=== PATIENT | male | born 1950 | race Caucasian/White ===

== ENCOUNTER 2018-08-02 07:48 | Inpatient (IN) | payer OTHER, MEDICARE ==
[2018-08-02] MEDS ORDERED: SODIUM CHLORIDE 0.9% 1,000 ML IV STA (08:00)
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
[2018-08-02 10:04] LABS: INR 2.8 (<1.2); Partial Thromboplastin Time 28.5 sec (22.0-30.0); Prothrombin Time 24.9 sec (9.0-12.0)
[2018-08-02 10:13] LABS: Basophils % (A) 1 %; Eosinophils # (A) 0.3 k/uL (0-0.7); Eosinophils % (A) 6 %; Hypochromasia Slight; Lymphocytes % (A) 21 %; MCH 29.5 pg (25.0-35.0); MCHC 33.1 g/dL (31.0-37.0); MCV 89.1 fL (80.0-100.0); Mean Platelet Volume 9.3; Monocytes # (A) 0.4 k/uL (0-1.0); Monocytes % (A) 9 %; Neutrophils # (A) 3.1 k/uL (1.3-7.7); Neutrophils % (A) 62 %; Platelet Count 201 k/uL (150-450); RBC 2.19 m/uL (4.30-5.90); RDW 13.8 % (11.5-15.5); WBC 4.9 k/uL (3.8-10.6)
[2018-08-02 10:17] LABS: HCT 19.5 % (39.0-53.0); HGB 6.5 gm/dL (13.0-17.5)
[2018-08-02 10:29] LABS: Albumin 3.3 g/dL (3.5-5.0); Calcium 8.4 mg/dL (8.4-10.2); Potassium 4.4 mmol/L (3.5-5.1); Total Bilirubin 0.1 mg/dL (0.2-1.3); Total Protein 6.4 g/dL (6.3-8.2)
[2018-08-02] MEDS ORDERED: PHYTONADIONE 5 MG in SODIUM CHLORIDE 0.9% 50 ML IVPB STA (10:40)
[2018-08-02 10:52] LABS: Appearance,Urine Clear (Clear); Bilirubin,Urine Negative (Negative); Blood,Urine Negative (Negative); Color,Urine Light Yellow; Glucose,Urine (UA) 2+ (Negative); Ketones,Urine Negative (Negative); Leukocyte Esterase,Urine Negative (Negative); Mucus,Urine Rare /hpf; Nitrite,Urine Negative (Negative); PH, Urine 5.5 (5.0-8.0); Protein,Urine 1+ (Negative); RBC,Urine <1 /hpf (0-5); Specific Gravity,Urine 1.025 (1.001-1.035); Urobilinogen,Urine <2.0 mg/dL (<2.0)
[2018-08-02 11:00] LABS: Creatine Kinase 84 U/L (55-170)
[2018-08-02] MEDS ORDERED: SODIUM CHLORIDE 0.9% 1,000 ML IV ONE (11:03)
[2018-08-02] MEDS ORDERED: NALOXONE 0.4 MG/ML 1 ML VIAL IV PRN (11:03)
[2018-08-02] MEDS ORDERED: LORazepam 2 MG/ML INJ IV PRN (11:03)
[2018-08-02] MEDS ORDERED: MORPHINE SULFATE 4 MG/ML SYRINGE IV PRN (11:03)
[2018-08-02] MEDS ORDERED: ONDANSETRON 4 MG/2 ML VIAL IVP PRN (11:03)
[2018-08-02 11:13] LABS: Creatine Kinase MB 0.8 ng/mL (0.0-2.4); Troponin I <0.012 ng/mL (0.000-0.034)
[2018-08-02 16:40] LABS: HCT 21.3 % (39.0-53.0); HGB 7.2 gm/dL (13.0-17.5); Hypochromasia Slight; MCH 30.2 pg (25.0-35.0); MCHC 33.6 g/dL (31.0-37.0); Mean Platelet Volume 8.5; Platelet Count 193 k/uL (150-450); Poikilocytosis Slight; RBC 2.37 m/uL (4.30-5.90); WBC 5.5 k/uL (3.8-10.6)
[2018-08-02] MEDS ORDERED: HYDROcodone/APAP 5-325MG 1 EACH TAB PO PRN (18:40)
[2018-08-02] MEDS: CARVEDILOL 12.5 MG TAB PO SCH (19:03)
[2018-08-02] MEDS: glipiZIDE 10 MG TAB PO SCH (19:03)
[2018-08-02] MEDS: INSULIN ASPART 100 UNIT/ML 1 ML 10 ML VIAL SQ SCH ×2 (19:03→20:24)
[2018-08-02] MEDS: PANTOPRAZOLE 40 MG/10 ML VIAL IVP SCH (19:10)
[2018-08-02] MEDS: ATORVASTATIN 40 MG TAB PO SCH (20:32)
[2018-08-02] MEDS: LISINOPRIL 10 MG TAB PO SCH (20:32)
[2018-08-02 20:34] LABS: Glucose,Whole Blood 81 mg/dL (75-99)
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
[2018-08-02] MEDS ORDERED: TEMAZEPAM 15 MG CAP PO PRN (21:00)
[2018-08-02 23:37] LABS: Glucose,Whole Blood 81 mg/dL (75-99)
[2018-08-03 03:57] LABS: Hemoglobin A1C 5.7 % (4.0-6.0)
[2018-08-03] MEDS: glipiZIDE 10 MG TAB PO SCH ×2 (06:34→17:49)
[2018-08-03] MEDS: INSULIN ASPART 100 UNIT/ML 1 ML 10 ML VIAL SQ SCH ×4 (06:34→20:53)
[2018-08-03] MEDS: CARVEDILOL 12.5 MG TAB PO SCH ×2 (06:35→17:49)
[2018-08-03 07:00] LABS: Glucose,Whole Blood 95 mg/dL (75-99)
[2018-08-03 07:02] LABS: INR 1.4 (<1.2); Prothrombin Time 12.9 sec (9.0-12.0)
[2018-08-03 07:04] LABS: Albumin 2.9 g/dL (3.5-5.0); Calcium 8.4 mg/dL (8.4-10.2); Potassium 3.9 mmol/L (3.5-5.1); Total Bilirubin 0.5 mg/dL (0.2-1.3); Total Protein 5.7 g/dL (6.3-8.2)
[2018-08-03 07:25] LABS: Basophils % (A) 1 %; Eosinophils # (A) 0.3 k/uL (0-0.7); Eosinophils % (A) 6 %; HCT 20.1 % (39.0-53.0); Hypochromasia Slight; Lymphocytes # (A) 1.3 k/uL (1.0-4.8); Lymphocytes % (A) 29 %; MCH 29.3 pg (25.0-35.0); MCHC 33.2 g/dL (31.0-37.0); MCV 88.3 fL (80.0-100.0); Mean Platelet Volume 9.4; Monocytes # (A) 0.4 k/uL (0-1.0); Monocytes % (A) 8 %; Neutrophils # (A) 2.4 k/uL (1.3-7.7); Neutrophils % (A) 54 %; Platelet Count 207 k/uL (150-450); Poikilocytosis Slight; RBC 2.27 m/uL (4.30-5.90); RDW 14.4 % (11.5-15.5); WBC 4.5 k/uL (3.8-10.6)
[2018-08-03 07:34] LABS: HGB 6.7 gm/dL (13.0-17.5)
[2018-08-03] MEDS: NICOTINE 14MG/24HR PATCH TRANSDERM SCH (08:35)
[2018-08-03] MEDS: SERTRALINE 50 MG TAB PO SCH (08:36)
[2018-08-03] MEDS: LISINOPRIL 10 MG TAB PO SCH ×2 (08:36→20:52)
[2018-08-03] MEDS: PANTOPRAZOLE 40 MG/10 ML VIAL IVP SCH (08:37)
[2018-08-03] MEDS ORDERED: FERROUS SULFATE 325 MG TAB PO SCH (09:00)
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
[2018-08-03] MEDS ORDERED: BISACODYL 5 MG TABLET.DR PO STA (10:57)
[2018-08-03 11:45] LABS: Glucose,Whole Blood 106 mg/dL (75-99)
--- NOTE | 2018-08-03 12:14 | ECHOF ---
Referral Reason:r/o cardiac contusion MEASUREMENTS -------- HEIGHT: 180.3 cm WEIGHT: 98.0 kg BP: IVSd: 1.3 cm (0.6 - 1.1) LVIDd: 4.9 cm (3.9 - 5.3) LVPWd: 1.3 cm (0.6 - 1.1) IVSs: 1.5 cm LVIDs: 2.8 cm LVPWs: 2.0 cm Ao Diam: 3.5 cm (2.0 - 3.7) AV Cusp: 2.0 cm (1.5 - 2.6) LA Diam: 3.8 cm (2.7 - 3.8) EPSS: 1.1 cm MV E [place]: 1.18 m/s MV A [place]: 0.84 m/s MV E/A Ratio: 1.40 MV EF SLOPE: 41.20 mm/s (70 - 150) MV EXCURSION: 1.50 cm (> 18.000) FINDINGS -------- Sinus rhythm. Pacerwire seen in RV and RA. AICD This was a technically difficult study with suboptimal views. The left ventricular size is normal. There is mild concentric left ventricular hypertrophy. Overa ll left ventricular systolic function is mild-moderately impaired with, an EF between 40 - 45 %. Ba leticia inferoseptal LV wall motion is hypokinetic. Mid inferoseptal LV wall motion is hypokinetic. Inferiorlateral Hypokinesis The right ventricle is normal in size and function. The left atrium is normal in size. The right atrium is normal in size. XX ml of Lumason was utilized for enhancement of images. The aortic valve is trileaflet, and appears structurally normal. No aortic stenosis or regurgitation. Mild mitral regurgitation is present. Mild tricuspid regurgitation present. The right ventricular systolic pressure, as measured by Doppl er, is {RVSP}. Pulmonic valve appears structurally normal. The aortic root size is normal. The pericardium is normal. CONCLUSIONS -------- 1. Sinus rhythm. 2. Pacerwire seen in RV and RA. 3. AICD 4. This was a technically difficult study with suboptimal views. 5. The left ventricular size is normal. 6. There is mild concentric left ventricular hypertrophy. 7. Overall left ventricular systolic function is mild-moderately impaired with, an EF between 40 - 45 %. 8. Basal inferoseptal LV wall motion is hypokinetic. 9. Mid inferoseptal LV wall motion is hypokinetic. 10. Inferiorlateral Hypokinesis 11. The right ventricle is normal in size and function. 12. The left atrium is normal in size. 13. The right atrium is normal in size. 14. XX ml of Lumason was utilized for enhancement of images. 15. The aortic valve is trileaflet, and appears structurally normal. No aortic stenosis or regurgitat ion. 16. Mild mitral regurgitation is present. 17. Mild tricuspid regurgitation present. 18. The right ventricular systolic pressure, as measured by Doppler, is {RVSP}. 19. Pulmonic valve appears structurally normal. 20. The aortic root size is normal. 21. The pericardium is normal. [employer] ENGINEER: Ashlee Luna RDCS
[2018-08-03] MEDS: LINAGLIPTIN 5 MG TABLET PO SCH (13:06)
[2018-08-03] MEDS: MULTIVITAMINS, THERA 1 EACH TAB PO SCH (13:07)
[2018-08-03] MEDS ORDERED: PEG 3350-NA SULF,BICARB,CL/KCL 4,000 ML BOTTLE PO ONE (14:00)
[2018-08-03 16:55] LABS: Glucose,Whole Blood 147 mg/dL (75-99)
[2018-08-03 19:11] LABS: HCT 26.5 % (39.0-53.0); Hypochromasia Slight; MCHC 33.1 g/dL (31.0-37.0); MCV 90.6 fL (80.0-100.0); Mean Platelet Volume 8.2; Platelet Count 228 k/uL (150-450); Poikilocytosis Slight; RBC 2.93 m/uL (4.30-5.90); RDW 14.1 % (11.5-15.5); WBC 6.6 k/uL (3.8-10.6)
[2018-08-03 19:19] LABS: HGB 8.8 gm/dL (13.0-17.5)
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
[2018-08-03] MEDS: ATORVASTATIN 40 MG TAB PO SCH (20:52)
[2018-08-03 21:05] LABS: Glucose,Whole Blood 147 mg/dL (75-99)
[2018-08-03 21:19] LABS: Glucose,Whole Blood 129 mg/dL (75-99)
[2018-08-04 06:49] LABS: Glucose,Whole Blood 80 mg/dL (75-99)
[2018-08-04] MEDS: INSULIN ASPART 100 UNIT/ML 1 ML 10 ML VIAL SQ SCH ×4 (07:00→20:20)
[2018-08-04] MEDS: LACTATED RINGERS 1,000 ML IV SCH ×2 (07:00→15:45)
[2018-08-04 07:18] LABS: INR 1.2 (<1.2); Prothrombin Time 11.2 sec (9.0-12.0)
[2018-08-04 07:27] LABS: Basophils % (A) 1 %; Eosinophils # (A) 0.4 k/uL (0-0.7); Eosinophils % (A) 6 %; HCT 22.2 % (39.0-53.0); HGB 7.5 gm/dL (13.0-17.5); Hypochromasia Slight; Lymphocytes # (A) 1.1 k/uL (1.0-4.8); Lymphocytes % (A) 20 %; MCHC 33.7 g/dL (31.0-37.0); Mean Platelet Volume 8.9; Monocytes # (A) 0.5 k/uL (0-1.0); Monocytes % (A) 8 %; Neutrophils # (A) 3.7 k/uL (1.3-7.7); Neutrophils % (A) 64 %; Platelet Count 199 k/uL (150-450); Poikilocytosis Slight; WBC 5.8 k/uL (3.8-10.6)
[2018-08-04 07:28] LABS: Calcium 8.5 mg/dL (8.4-10.2)
[2018-08-04] MEDS ORDERED: IV FLUID CONTINUATION 1,000 ML IV ONE (08:04)
[2018-08-04] MEDS ORDERED: fentaNYL (PF) 50 MCG/ML 2 ML AMP ONE (08:04)
[2018-08-04] MEDS ORDERED: LIDOCAINE 1% INJ 10MG/ML (20 ML MDV) ONE (08:04)
[2018-08-04] MEDS ORDERED: PROPOFOL 10 MG/ML 20 ML VIAL IV ONE (08:04)
[2018-08-04] MEDS: MULTIVITAMINS, THERA 1 EACH TAB PO SCH (08:57)
[2018-08-04] MEDS: SERTRALINE 50 MG TAB PO SCH (08:57)
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
[2018-08-04] MEDS: NICOTINE 14MG/24HR PATCH TRANSDERM SCH (09:00)
[2018-08-04] MEDS: PANTOPRAZOLE 40 MG/10 ML VIAL IVP SCH (09:02)
[2018-08-04] MEDS ORDERED: SIMETHICONE 40 MG/0.6 ML DROPS 2,000 MG/30 ML BOTTLE PO ONE (09:50)
[2018-08-04 11:13] LABS: Glucose,Whole Blood 74 mg/dL (75-99)
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
[2018-08-04] MEDS: LINAGLIPTIN 5 MG TABLET PO SCH (15:45)
[2018-08-04] MEDS: LISINOPRIL 10 MG TAB PO SCH ×2 (15:45→20:20)
[2018-08-04] MEDS: glipiZIDE 10 MG TAB PO SCH ×2 (15:45→17:48)
[2018-08-04] MEDS: CARVEDILOL 12.5 MG TAB PO SCH ×2 (15:45→17:48)
[2018-08-04 16:13] LABS: Glucose,Whole Blood 81 mg/dL (75-99)
[2018-08-04] MEDS: ATORVASTATIN 40 MG TAB PO SCH (20:20)
[2018-08-04 20:25] LABS: Glucose,Whole Blood 162 mg/dL (75-99)
[2018-08-05 06:00] LABS: Basophils # (A) 0.1 k/uL (0-0.2); Basophils % (A) 1 %; Eosinophils # (A) 0.2 k/uL (0-0.7); Eosinophils % (A) 4 %; HCT 24.1 % (39.0-53.0); HGB 8.1 gm/dL (13.0-17.5); Hypochromasia Slight; Lymphocytes # (A) 1.1 k/uL (1.0-4.8); Lymphocytes % (A) 19 %; MCH 30.2 pg (25.0-35.0); MCHC 33.6 g/dL (31.0-37.0); MCV 89.9 fL (80.0-100.0); Mean Platelet Volume 8.6; Monocytes # (A) 0.4 k/uL (0-1.0); Monocytes % (A) 7 %; Neutrophils # (A) 3.7 k/uL (1.3-7.7); Neutrophils % (A) 66 %; Platelet Count 215 k/uL (150-450); Poikilocytosis Slight; RBC 2.68 m/uL (4.30-5.90); RDW 14.2 % (11.5-15.5); WBC 5.6 k/uL (3.8-10.6)
[2018-08-05 06:06] LABS: INR 1.1 (<1.2); Prothrombin Time 10.7 sec (9.0-12.0)
[2018-08-05 06:11] LABS: Calcium 9.1 mg/dL (8.4-10.2); Potassium 4.8 mmol/L (3.5-5.1)
[2018-08-05] MEDS: glipiZIDE 10 MG TAB PO SCH ×2 (06:23→17:39)
[2018-08-05] MEDS: CARVEDILOL 12.5 MG TAB PO SCH ×2 (06:23→17:39)
[2018-08-05 06:31] LABS: Glucose,Whole Blood 58 mg/dL (75-99)
[2018-08-05] MEDS: INSULIN ASPART 100 UNIT/ML 1 ML 10 ML VIAL SQ SCH ×4 (06:36→22:06)
[2018-08-05 07:06] LABS: Glucose,Whole Blood 83 mg/dL (75-99)
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
[2018-08-05] MEDS: NICOTINE 14MG/24HR PATCH TRANSDERM SCH (08:21)
[2018-08-05] MEDS: PANTOPRAZOLE 40 MG/10 ML VIAL IVP SCH (08:28)
[2018-08-05] MEDS: MULTIVITAMINS, THERA 1 EACH TAB PO SCH (08:29)
[2018-08-05] MEDS: LISINOPRIL 10 MG TAB PO SCH ×2 (08:29→19:44)
[2018-08-05] MEDS: LINAGLIPTIN 5 MG TABLET PO SCH (08:29)
[2018-08-05] MEDS: SERTRALINE 50 MG TAB PO SCH (08:29)
[2018-08-05 11:52] LABS: Glucose,Whole Blood 201 mg/dL (75-99)
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
[2018-08-05] MEDS: LACTATED RINGERS 1,000 ML IV SCH (16:02)
[2018-08-05 17:00] LABS: Glucose,Whole Blood 140 mg/dL (75-99)
[2018-08-05] MEDS: ATORVASTATIN 40 MG TAB PO SCH (19:44)
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
[2018-08-05 21:51] LABS: Glucose,Whole Blood 178 mg/dL (75-99)
[2018-08-05 23:39] VITALS: RESP 16
[2018-08-06 07:31] VITALS: BP 160/79; PULSE 63; TEMP 98.1
[2018-08-06 08:54] LABS: Basophils % (A) 1 %; Eosinophils # (A) 0.3 k/uL (0-0.7); Eosinophils % (A) 7 %; HGB 8.4 gm/dL (13.0-17.5); Hypochromasia Moderate; Lymphocytes # (A) 1.1 k/uL (1.0-4.8); Lymphocytes % (A) 22 %; MCH 29.2 pg (25.0-35.0); MCHC 32.3 g/dL (31.0-37.0); MCV 90.3 fL (80.0-100.0); Mean Platelet Volume 8.9; Monocytes # (A) 0.5 k/uL (0-1.0); Monocytes % (A) 10 %; Neutrophils % (A) 59 %; Platelet Count 211 k/uL (150-450); Poikilocytosis Slight; RBC 2.88 m/uL (4.30-5.90); RDW 14.4 % (11.5-15.5); WBC 5.1 k/uL (3.8-10.6)
[2018-08-06] MEDS: PANTOPRAZOLE 40 MG/10 ML VIAL IVP SCH (08:54)
[2018-08-06] MEDS: NICOTINE 14MG/24HR PATCH TRANSDERM SCH (08:56)
[2018-08-06] MEDS: CARVEDILOL 12.5 MG TAB PO SCH (08:57)
[2018-08-06] MEDS: SERTRALINE 50 MG TAB PO SCH (08:57)
[2018-08-06] MEDS: LINAGLIPTIN 5 MG TABLET PO SCH (08:57)
[2018-08-06] MEDS: INSULIN ASPART 100 UNIT/ML 1 ML 10 ML VIAL SQ SCH ×2 (08:58→13:17)
[2018-08-06] MEDS: glipiZIDE 10 MG TAB PO SCH (08:58)
[2018-08-06] MEDS: LISINOPRIL 10 MG TAB PO SCH (08:58)
[2018-08-06 09:24] LABS: Calcium 8.9 mg/dL (8.4-10.2); Potassium 4.6 mmol/L (3.5-5.1)
[2018-08-06] MEDS: MULTIVITAMINS, THERA 1 EACH TAB PO SCH (13:08)
[2018-08-06 13:26] LABS: Glucose,Whole Blood 195 mg/dL (75-99)
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
== END 2018-08-06 15:20 | disposition home or self-care (01) | DRG 378 ==
LOC: EC 07:48 → 3SCARD 11:38 → 4SSUR 08-06 00:44
PROVIDERS: ADMIT Hospitalist; ATTEND Hospitalist
PROC: 30233N1 Transfusion of Nonautologous Red Blood Cells into Peripheral Vein, Percutaneous Approach (ICD-10-PCS; 2018-08-02)
PROC: 0DJD8ZZ Inspection of Lower Intestinal Tract, Via Natural or Artificial Opening Endoscopic (ICD-10-PCS; principal; 2018-08-04 08:00)
PROC: 0DJ07ZZ Inspection of Upper Intestinal Tract, Via Natural or Artificial Opening (ICD-10-PCS; 2018-08-04 08:00)
DX: K92.1 Melena (principal); D62 Acute posthemorrhagic anemia; D68.32 Hemorrhagic disorder due to extrinsic circulating anticoagulants; E11.22 Type 2 diabetes mellitus with diabetic chronic kidney disease; E78.5 Hyperlipidemia, unspecified; Z85.46 Personal history of malignant neoplasm of prostate; F17.210 Nicotine dependence, cigarettes, uncomplicated; G47.30 Sleep apnea, unspecified; H40.9 Unspecified glaucoma; I12.9 Hypertensive chronic kidney disease with stage 1 through stage 4 chronic kidney disease, or unspecified chronic kidney disease; I25.10 Atherosclerotic heart disease of native coronary artery without angina pectoris; I25.2 Old myocardial infarction; I25.5 Ischemic cardiomyopathy; I48.0 Paroxysmal atrial fibrillation; J43.9 Emphysema, unspecified; K29.80 Duodenitis without bleeding; K44.9 Diaphragmatic hernia without obstruction or gangrene; N18.3 Chronic kidney disease, stage 3 (moderate); T45.515A Adverse effect of anticoagulants, initial encounter; S20.211A Contusion of right front wall of thorax, initial encounter; V89.2XXA Person injured in unspecified motor-vehicle accident, traffic, initial encounter; Y92.410 Unspecified street and highway as the place of occurrence of the external cause; Z79.01 Long term (current) use of anticoagulants; Z79.82 Long term (current) use of aspirin; Z79.899 Other long term (current) drug therapy; Z80.0 Family history of malignant neoplasm of digestive organs; Z82.49 Family history of ischemic heart disease and other diseases of the circulatory system; Z82.5 Family history of asthma and other chronic lower respiratory diseases; Z85.3 Personal history of malignant neoplasm of breast; Z92.3 Personal history of irradiation; Z95.5 Presence of coronary angioplasty implant and graft; Z95.810 Presence of automatic (implantable) cardiac defibrillator; K63.5 Polyp of colon; Z79.84 Long term (current) use of oral hypoglycemic drugs
CPT/HCPCS: 36415; 43235; 45378; 70450; 71260; 72125; 74177; 80048; 80053; 81001; 82272; 82550; 82553; 83036; 84484; 85025; 85027; 85610; 85730; 86850; 86900; 86901; 86920; 91110; 93005; 93306; 96361; 96365; 99285